=== PATIENT | female | born 1975 | race Caucasian/White ===

== ENCOUNTER 2016-04-26 08:28 | Emergency (ER) | payer SELFPAY ==
--- NOTE | 2016-04-26 10:24 | ER Document Report ---
HPI - HPI Patient complains to provider of: cough, fever Onset: Last week Quality of pain: Achy Pain Level: 3 Context: Patient presents emergency department with cough since last Sunday. Reports fever of 102. Denies vomiting diarrhea. Reports sinus pain that started couple days ago. She has been taking mucinex dm, motrin. No relief from the symptoms and has had to call in work. 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 Associated Symptoms: Nonproductive cough, Fever, Sinus pain/drainage Exacerbated by: Denies Relieved by: Denies Similar symptoms previously: No Recently seen / treated by doctor: No - CARDIOVASCULAR Cardiovascular: DENIES: Chest pain - REPRODUCTIVE LMP: 06 april Reproductive: DENIES: : - DERM Skin Color: Normal Past Medical History - General Information source: Patient Last Menstrual Period: 04/06/16 - Social History Smoking Status: Never Smoker Chew tobacco use (# tins/day): No Frequency of alcohol use: None Drug Abuse: None Occupation: lunch lady [employer] Lives with: Family Family History: Reviewed & Not Pertinent Patient has suicidal ideation: No Patient has homicidal ideation: No - Medical History Medical History: Negative Renal/ Medical History: Denies: Hx Peritoneal Dialysis Past Surgical History: Reports: Hx Section, Hx Gynecologic Surgery - c section, Hx Tonsillectomy - Immunizations Hx Diphtheria, Pertussis, Tetanus Vaccination: Yes Vertical Provider Document - CONSTITUTIONAL Agree With Documented VS: Yes Exam Limitations: No Limitations General Appearance: WD/WN, No Apparent Distress - nontoxic looking - INFECTION CONTROL TRAVEL OUTSIDE OF THE [place] IN LAST 30 DAYS: No - HEENT HEENT: Atraumatic, Normocephalic, PERRLA. negative: Pharyngeal Exudate, Pharyngeal Erythema, Tympanic Membrane Red, Tympanic Membrane Bulging Notes: +maxillary sinus ttp - NECK Neck: Normal Inspection, Supple. negative: Lymphadenopathy-Left, Lymphadenopathy-Right - RESPIRATORY Respiratory: Breath Sounds Normal, No Respiratory Distress. negative: Rhonchi, Wheezing O2 Sat by Pulse Oximetry: 95 - CARDIOVASCULAR Cardiovascular: Regular Rate - GI/ABDOMEN Gastrointestinal: Abdomen Soft, Abdomen Non-Tender - MUSCULOSKELETAL/EXTREMETIES Musculoskeletal/Extremeties: MAEW, FROM - NEURO Level of Consciousness: Awake, Alert, Appropriate Motor/Sensory: No Motor Deficit - DERM Integumentary: Warm, Dry, No Rash Course - Re-evaluation Re-evalutation: 04/26/16 10:37 pt is trying to get , no steroids ordered. inhaler prescribed. Patient reports she has used inhaler without problems before without allergic reaction. - Vital Signs Vital signs: Temp Pulse Resp BP Pulse Ox 97.9 F 70 16 113/86 H 95 04/26/16 08:42 04/26/16 08:42 04/26/16 08:42 04/26/16 08:42 04/26/16 08:42 - Diagnostic Test Radiology reviewed: Image reviewed, Reports reviewed - neg Discharge - Discharge Clinical Impression: Bronchitis, sinus pain Condition: Stable Disposition: HOME, SELF-CARE Instructions: Bronchitis ([facility]), Bronchodilators ([facility]) Additional Instructions: *You have been evaluated for a cough, bronchitis, sinus pain *Monitor your temperature, take tylenol or motrin as indicated *Use inhaler as prescribed 2 puffs every 4 hours as needed *Take over the counter decongestant *Increase fluids *Follow up with a primary care provider within one week for recheck *Return to ED for increasing fever, cough, worsening condition, changes, needs, trouble breathing Forms: Return to Work
[2016-04-26] MEDS ORDERED: ALBUTEROL SULFATE HFA (90 MCG/PUFF) 8 GM MDI (1 MDI/ER DISP) IH ONE (10:26)
[2016-04-26 11:16] VITALS: BP 110/66
== END 2016-04-26 11:16 | disposition home or self-care (01) ==
LOC: ER 08:28
DX: J40 Bronchitis, not specified as acute or chronic (principal); R50.9 Fever, unspecified; R51 Headache
CPT/HCPCS: 99283; 71020; J3490